=== PATIENT | female | born 1965 | race Caucasian/White ===

== ENCOUNTER 2020-09-11 20:42 | Emergency (ER) | payer MEDICARE, MEDICAID, SELFPAY ==
[2020-09-11 22:53] VITALS: BP 200/101; PULSE 67; RESP 18; TEMP 36.7; O2SAT 98; BMI 24.5
--- NOTE | 2020-09-12 00:52 | ED.ANIMALBIT ---
HPI - Animal Bite General Chief Complaint: Animal Bite Stated Complaint: tick bite Time Seen by Provider: 09/12/20 00:52 Source: patient Mode of arrival: ambulatory History of Present Illness HPI narrative: 54-year-old deaf female was working in her yard and now presents with a small tick to the right medial posterior aspect of her leg. The tick was removed in its entirety. Patient received prophylactic doxycycline and was discharged home. Related Data Allergies Allergy/AdvReac Type Severity Reaction Status Date / Time No Known Allergies Allergy Unverified 12/26/19 19:36 [No Known Allergies*] Review of Systems Review of Systems: pertinent positives and negatives as stated in the HPI and 10 point review of systems is otherwise negative. [facility] Past Medical History Source: nursing notes reviewed Medical History Deaf Diabetes Social History Social History Advance Directives: No Advance Directives Information Provided: No Patient : No Physical Exam Vital Signs: Vital Signs: Last Vital Signs Temp 98.0 F 09/11/20 22:53 Pulse 67 09/11/20 22:53 Resp 18 09/11/20 22:53 BP 200/101 H 09/11/20 22:53 Pulse Ox 98 09/11/20 22:53 Body Mass Index 24.5 VITAL SIGNS: Reviewed. GENERAL: Well developed, well nourished, in no acute distress. HEAD: Normocephalic/atraumatic EYES: PERRLA, EOMI OROPHARYNX: no oral lesions noted, posterior pharynx clear LUNGS: Normal breath sounds. SpO2<98> CARDIOVASCULAR: Regular rate and rhythm without noted murmurs ABDOMEN: Soft, non-tender, non-distended with bowel sounds. RLE: a very small tick is noted to be in the medial posterior thigh Course Course Course Narrative: 54-year-old female with history and clinical presentation consistent with tick exposure, the tick was successfully removed in its entirety and patient was treated with prophylactic doxycycline and discharged in stable condition. Procedures Foreign Body Removal Time Out Performed: no Site: right and lower extremity Description of foreign body: insect Sedation/Analgesia: none Technique: manual removal Confirmed by:: direct visualization Complications: none Discharge Plan Discharge Clinical Impression: Tick bite Patient Disposition: Home, Self-Care Additional Instructions: Return to the ER for worsening symptoms. Referrals: Physician,Unknown [Primary Care Provider] - 2 days Interventions: ED Discharge Assessment Last Done: 09/12/20 01:24 Discharge Date/Time: 09/12/20 01:25
== END 2020-09-12 01:25 | disposition home or self-care (01) ==
PROVIDERS: Emergency Provider Student in an Organized Health Care Education/Training Program
DX: S80.861A Insect bite (nonvenomous), right lower leg, initial encounter (principal); M79.661 Pain in right lower leg; W57.XXXA Bitten or stung by nonvenomous insect and other nonvenomous arthropods, initial encounter; Y93.H2 Activity, gardening and landscaping; Y92.007 Garden or yard of unspecified non-institutional (private) residence as the place of occurrence of the external cause; Y99.9 Unspecified external cause status
CPT/HCPCS: 99284